=== PATIENT | female | born 1990 | race Caucasian/White ===

== ENCOUNTER 2017-04-15 10:25 | Emergency (ER) | payer MEDICAID ==
[~2017-04-15] VITALS: Ht 157.5 cm; Wt 78.5 kg
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
[2017-04-15 11:22] VITALS: RESP 18; TEMP 97.9
[2017-04-15 11:23] VITALS: BP 107/71; PULSE 92
[2017-04-15] MEDS ORDERED: LACTATED RINGER'S 1000 ML INJ 500 ML IV ONE (12:09)
[2017-04-15] MEDS ORDERED: fentaNYL CITRATE 250 MCG/5 ML AMP IV PUSH ONE ×2 (12:15→13:30)
[2017-04-15] MEDS ORDERED: TERBUTALINE INJ 1 MG/ML AMP SQ ONE (12:15)
[2017-04-15 12:21] LABS: BLOOD, URINE NEG (NEG); COMMENT (UR) CULT NOT INDICATED; CULTURE IF INDICATED CULT NOT INDICATED; GLUCOSE,URINE NEG (NEG); KETONE, URINE NEG (NEG); MUCUS URINE FEW /lpf (OCC); NITRITE,URINE NEG (NEG); SQUAMOUS EPITHELIAL CELL URINE 9 /hpf (0-5); URINE COLOR YELLOW (YELLW/STRAW)
[2017-04-15] MEDS: LACTATED RINGER'S 1000 ML INJ 500 ML IV SCH ×2 (12:43→13:20)
[2017-04-15] MEDS ORDERED: TERBUTALINE INJ 1 MG/ML AMP SQ PRN (13:30)
--- NOTE | 2017-04-15 15:29 | HHI.PR ---
Addendum to Inpatient Note Addendum Reason: Additional Documentation Additional Information Unable to add my discharge to initial documentation. However, reviewed discharge information with nurse who entered information into the computer. Torey Back MD R1 April 15, 2017 15:29
== END 2017-04-15 15:43 | disposition home or self-care (01) ==
LOC: HOBED 10:25
DX: O62.9 Abnormality of forces of labor, unspecified (principal); H53.8 Other visual disturbances; O34.219 Maternal care for unspecified type scar from previous cesarean delivery; Z72.0 Tobacco use; Z3A.30 30 weeks gestation of pregnancy
CPT/HCPCS: 81001; 82731; 96361; 96372; 96374; 96376; 99284; J3010; J3105; J7120

== ENCOUNTER 2018-05-02 19:45 | Emergency (ER) | payer MEDICAID | END 2018-05-02 20:37 | disposition left against medical advice (07) | LOC: NED 19:45 | DX: L98.9 Disorder of the skin and subcutaneous tissue, unspecified (principal) | CPT/HCPCS: 99281 ==